=== PATIENT | male | born 1985 | race African-American/Black ===

== ENCOUNTER 2017-06-27 07:38 | Emergency (ER) | payer MEDICAID, OTHER ==
[~2017-06-27] VITALS: Ht 180.3 cm; Wt 145.1 kg
[~2017-06-27 07:38] MED LIST: KEFLEX500 MG ORAL
[2017-06-27 08:10] VITALS: BP 160/71
[2017-06-27 08:30] VITALS: BP 154/68
[2017-06-27] MEDS ORDERED: CORTISPORIN EAR10 ML RIGHT EAR (08:31)
[2017-06-27] MEDS ORDERED: CEPHALEXIN500 MG ORAL (08:31)
--- NOTE | 2017-07-01 11:02 | Emergency Room Report ---
History of Present Illness General Chief Complaint: Earache Source: Patient Present Illness HPI Patient is a 32 year old male who presented after increased sharp right ear pain , gradual onset for the past few days. Pain was worse with movement of the ear. He denied hearing loss or tinntus. He had mild sore throat. He denied fever or severe headache. Allergies: Coded Allergies: NO KNOWN ALLERGIES (Unverified Allergy, Unknown, 03/07/15) Patient History Past Medical History: see triage record Reviewed Nursing Documentation: PMH: Agreed, PSxH: Agreed Nursing Documentation-PMH Past Medical History: No Stated History Review of Systems All Other Systems: negative except mentioned in HPI Physical Exam Vital Signs Date Time Temp Pulse Resp B/P (MAP) Pulse Ox O2 Delivery O2 Flow Rate FiO2 06/27/17 07:56 99.1 108 20 160/71 99 Room Air General Appearance: well appearing, no apparent distress, alert, GCS 15, non- toxic, obese Head: normocephalic, atraumatic ENT: hearing grossly normal, normal voice, other - right ear canal swelling, tm poorly visualized, no mastoid tenderness Neck: full range of motion, supple Respiratory: no respiratory distress, speaking full sentences Cardiovascular #1: normal inspection, normal peripheral pulses Gastrointestinal: normal inspection Musculoskeletal: no calf tenderness Neurologic: normal inspection, alert, oriented x3, normal gait Psychiatric: mood/affect normal Skin: no rash Medical Decision Making Diagnostic Impression: Primary Impression: Otitis media ER Course Patient presented for earache. Differential diagnosis included but was not limited to otitis media, swimmer's ear, malignant otitis, perforated tm, mastoiditis, myocardial infarction among others. Patient's ear has minimal canal swelling. He appears to have an otitis media. He was advised to follow up with primary care physician for recheck. Last Vital Signs Date Time Temp Pulse Resp B/P (MAP) Pulse Ox O2 Delivery O2 Flow Rate FiO2 06/27/17 08:30 99.1 76 18 154/68 100 Room Air Status: improved Disposition: HOME, SELF-CARE Condition: Stable Scripts Cephalexin* (KEFLEX*) 500 Mg Capsule 500 MG ORAL EVERY 6 HOURS, #28 CAP Prov: Tyler Mota 06/27/17 Neomycin/Polymyxin B Sulf/Hc* (CORTISPORIN EAR SOLUTION*) 10 Ml Solution 4 DROP RIGHT EAR QID, #10 ML 0 Refills Prov: Tyler Mota 06/27/17 Referrals: [facility] (PCP) Patient Instructions: Otitis Media, Adult Tyler Mota Jul 01, 2017 11:02
== END 2017-06-27 08:36 | disposition home or self-care (01) ==
LOC: EMR 08:15
DX: H66.91 Otitis media, unspecified, right ear (principal); H92.01 Otalgia, right ear
CPT/HCPCS: 99282

== ENCOUNTER 2017-09-17 13:09 | Emergency (ER) | payer OTHER ==
[~2017-09-17] VITALS: Ht 180.3 cm; Wt 131.5 kg
[~2017-09-17 13:09] MED LIST changes: +CEPHALEXIN500 MG ORAL; +CORTISPORIN EAR10 ML RIGHT EAR
--- NOTE | 2017-09-17 13:33 | Emergency Room Report ---
History of Present Illness General Chief Complaint: Upper Extremity Injury Source: Patient Present Illness HPI 32 yo male patient presents to ER complaining of wrist pain x1 week. Reports pain occurring while at work; patient works as a personal body guard; denies acute accident that occurred. Reports taking Tylenol and wearing a wrist splint since that time. Reports pain with ROM. Denies FOOSH injury. Denies acute accident. Denies fever, chest pain, SOB. Allergies: Coded Allergies: NO KNOWN ALLERGIES (Unverified Allergy, Unknown, 03/07/15) Patient History Past Medical History: see triage record Reviewed Nursing Documentation: PMH: Agreed, PSxH: Agreed Nursing Documentation-PMH Past Medical History: No Stated History Review of Systems All Other Systems: negative except mentioned in HPI Physical Exam Vital Signs Date Time Temp Pulse Resp B/P (MAP) Pulse Ox O2 Delivery O2 Flow Rate FiO2 09/17/17 13:22 98.3 90 18 139/89 97 Room Air 98.2 Sp02 EP Interpretation: reviewed, normal General Appearance: well appearing, no apparent distress, alert, GCS 15, non- toxic Head: normocephalic, atraumatic Eyes: bilateral eye normal inspection, bilateral eye PERRL ENT: hearing grossly normal, normal pharynx, no angioedema, normal voice, uvula midline, moist mucus membranes Respiratory: lungs clear, normal breath sounds, no rhonchi, no respiratory distress, no accessory muscle use, no wheezing, speaking full sentences Cardiovascular #1: regular rate, rhythm, no edema Cardiovascular #2: 2+ radial (R), 2+ radial (L) Musculoskeletal: back normal, digits/nails normal, gait/station normal, non- tender, decreased range of motion - wrist flexion and extension secondary to pain, swelling, other - no snuffbox tenderness, NVI, tender - dorsum of wrist near MTP Neurologic: alert, oriented x3, responsive, motor strength/tone normal, sensory intact Psychiatric: mood/affect normal Skin: no rash Lymphatic: no adenopathy Medical Decision Making PA Attestation Dr. Hernández is my supervising Physician whom patient management has been discussed with. Diagnostic Impression: Primary Impression: Wrist pain ER Course Pt. presents to the ED c/o left wrist pain. Ddx considered but are not limited to fracture, sprain, strain. Vital signs: are WNL, pt. is afebrile Ordered X-ray. ER COURSE An X-ray of the left wrist was ordered, results show no acute fracture, per the preliminary reading. Spoke with Dr. Godfrey in radiology, reports no acute findings. Discuss results with patient. Informed no acute disease. Patient upset to hear that no fracture present. Informed patient of possibility of occult fracture but unlikely, no acute disease visible at this time. Continue to wear wrist splint. Followup with resolution specialist for further treatment and imaging as needed. Take Ibuprofen for pain relief. DISCHARGE: -Rx provided for Ibuprofen for pain symptoms. At this time pt. is stable for d/c to home. Patient is resting comfortably, in no acute distress, nontoxic appearing, talking without difficulty. Will provide printed patient care instructions, and any necessary prescriptions. Patient instructed to follow with primary care provider in 3 - 5 days and to request further orthopedic follow-up. Care plan and follow up instructions have been discussed with the patient prior to discharge. Patient instructed on RICE method: rest, ice, compression, elevation. Patient instructed to WBAT. Take medications as directed. Patient questions asked and answered. Patient reports understanding and agreement to treatment plan. ER precautions given, patient instructed to return to ER immediately for any new or worsening of symptoms. Other X-Ray Diagnostic Results Other X-Ray Diagnostic Results : X-Ray ordered: left wrist # of Views/Limited Vs Complete: 3 View Indication: Pain EP Interpretation: Yes PA Xray: Interpretation reviewed, by supervising MD, and agrees with findings. Interpretation: no dislocation, no soft tissue swelling, no fractures Impression: No acute disease PA Scribe Text Riki Morales PA-Marley Last Vital Signs Date Time Temp Pulse Resp B/P (MAP) Pulse Ox O2 Delivery O2 Flow Rate FiO2 09/17/17 13:22 98.3 90 18 139/89 97 Room Air 98.2 Disposition: HOME, SELF-CARE Condition: Stable Scripts Ibuprofen* (MOTRIN*) 600 Mg Tablet 600 MG ORAL Q8H Y for For Pain, #30 TAB 0 Refills Prov: Lb Morales 09/17/17 Patient Instructions: Wrist Sprain Additional Instructions: Patient instructed to follow up with primary care provider and discuss further referral to orthopedics. Patient instructed on RICE method: rest, ice, compression, elevation. Patient instructed to WBAT. Take medications as directed. Patient questions asked and answered. ER precautions given, patient instructed to return to ER immediately for any new or worsening of symptoms. Lb Morales Sep 17, 2017 13:33
[2017-09-17] MEDS ORDERED: IBUPROFEN600 MG ORAL (14:23)
--- NOTE | 2017-09-17 14:25 | Diagnostic Imaging Report ---
Clinical Indication:Pain Technique: 3 views of the left wrist Comparison: None Findings: No acute fractures. No dislocations. The joint spaces are preserved Impression: Negative
[2017-09-17 14:31] VITALS: BP 139/89
[2017-09-17 14:34] VITALS: BP 139/89
== END 2017-09-17 15:01 | disposition home or self-care (01) ==
LOC: EMR 13:52
DX: M25.532 Pain in left wrist (principal)
CPT/HCPCS: 99283

== ENCOUNTER 2018-05-17 22:16 | Emergency (ER) | payer OTHER ==
[~2018-05-17] VITALS: Ht 182.9 cm; Wt 136.1 kg
[~2018-05-17 22:16] MED LIST changes: +IBUPROFEN600 MG ORAL
--- NOTE | 2018-05-17 22:37 | Emergency Room Report ---
History of Present Illness General Chief Complaint: Skin Rash/Abscess Source: Patient Present Illness HPI Is a 33-year-old male with no past medical history. He presents with spider bite to his left thigh. He was just released from [facility]. He thought have been bitten by a spider. He had an abscess that drained and now hard on his distal anterior left thigh. He has another one on his proximal thigh and has been draining. He's been cleaning it with hydrogen peroxide. No fever chills but no nausea no vomiting. He also has a very small one on his abdomen. No fever chills. Pain is 7 out of 10. Worse with palpation. Denies any other complaint. Never had this problem before. Did not actually see a spider biting him. Allergies: Coded Allergies: NO KNOWN ALLERGIES (Unverified Allergy, Unknown, 03/07/15) Patient History Past Medical History: see triage record, old chart reviewed Past Surgical History: none Pertinent Family History: none Social History: Denies: smoking Immunizations: other Reviewed Nursing Documentation: PMH: Agreed; PSxH: Agreed Nursing Documentation-PMH Past Medical History: No Stated History Review of Systems Eye: Denies: eye pain, blurred vision ENT: Denies: ear pain, nose congestion, throat swelling Respiratory: Denies: cough, shortness of breath Cardiovascular: Denies: chest pain, palpitations Gastrointestinal: Denies: abdominal pain, diarrhea, nausea, vomiting Musculoskeletal: Denies: back pain, joint pain Skin: Reports: lesions; Denies: rash Neurological: Denies: headache, numbness Endocrine: Denies: increased thirst, increased urine Hematologic/Lymphatic: Denies: easy bruising All Other Systems: negative except mentioned in HPI Physical Exam Vital Signs Date Time Temp Pulse Resp B/P (MAP) Pulse Ox O2 Delivery O2 Flow Rate FiO2 05/17/18 22:20 98.2 80 16 139/85 95 Room Air vitals normal Sp02 EP Interpretation: reviewed, normal General Appearance: well appearing, no apparent distress, alert Head: normocephalic, atraumatic Eyes: bilateral eye PERRL, bilateral eye EOMI ENT: hearing grossly normal, normal pharynx Neck: full range of motion, supple, no meningismus Respiratory: chest non-tender, lungs clear, normal breath sounds Cardiovascular #1: regular rate, rhythm, no murmur Gastrointestinal: normal bowel sounds, non tender, no mass, no organomegaly, no bruit, non-distended, other - Abdominal wall with 2 mm indurated erythematous lesion with a blackhead. Musculoskeletal: back normal, gait/station normal, normal range of motion, other - Left proximal thigh, laterally: There is an indurated area of 3 cm with central necrosis of 1 cm. Slight oozing. Mild erythema. No fluctuant. Psychiatric: mood/affect normal Skin: warm/dry Procedures Incision and Drainage Incision and Drainage : Consent: Verbal Site: left thigh Blade Size: 11 I & D Procedure: betadine prep, sterile drapes applied Wound Location: lower extremity Anesthesia: Lidocaine w/ Epi Volume Anesthetic (ccs): 2 Patient Tolerated: Well Complications: None Progress Area clean with Betadine. Local anesthetic 1% lidocaine with epinephrine injected. I made an incision over the eschar. Loculated area broken up. Only scant amount of pus expressed. I excised the necrotic center. Dressing placed. Patient tolerated procedure without a problem. Medical Decision Making Diagnostic Impression: Primary Impression: Abscess ER Course Patient presents with an abscess to his thigh and abdomen. This most likely MRSA. Dose of antibiotics given here. I indeed done. We'll discharge home. No deep infection or necrotizing fasciitis. Last Vital Signs Date Time Temp Pulse Resp B/P (MAP) Pulse Ox O2 Delivery O2 Flow Rate FiO2 05/17/18 22:20 98.2 80 16 139/85 95 Room Air Status: improved Disposition: HOME, SELF-CARE Condition: Stable Scripts Ibuprofen* (MOTRIN*) 600 Mg Tablet 600 MG ORAL THREE TIMES A DAY, #30 TAB 0 Refills Prov: Forest Peña MD 05/17/18 Trimethoprim/Sulfamethoxazole 160/800* (BACTRIM DS TABLET*) 1 Each Tablet 1 TAB ORAL Q12H, #14 TAB 0 Refills Prov: Forest Peña MD 05/17/18 Referrals: [facility] (PCP) Patient Instructions: Abscess Additional Instructions: Follow-up your doctor in 2-3 days for recheck. Return if symptom worsen. Keep wound clean. Clean with hydrogen peroxide first. Then apply antibiotic ointment. Return if symptom worsen. Forest Peña MD May 17, 2018 22:37
[2018-05-17] MEDS ORDERED: BACTRIM DS TAB1 EAC1 ORAL (22:54)
[2018-05-17] MEDS ORDERED: IBUPROFEN600 MG ORAL (22:54)
[2018-05-17] MEDS ORDERED: Bactrim-DS 1 tab ORAL ONE (23:00)
[2018-05-17 23:20] VITALS: BP 141/81
[2018-05-17 23:30] VITALS: BP 141/81
== END 2018-05-17 23:30 | disposition home or self-care (01) ==
LOC: EMR 22:33
DX: L02.416 Cutaneous abscess of left lower limb (principal)
CPT/HCPCS: 10060; 99283